=== PATIENT | male | born 1950 | race Caucasian/White ===

== ENCOUNTER 2023-04-17 07:30 | Outpatient (OUT) | payer MEDICARE, SELFPAY ==
--- NOTE | 2023-04-17 07:36 | CT_ITS ---
The [address] [address] Patient Name: AUGUSTO BOONE MRN: [id number] date: 1950 Sex: M Assigned Patient Location: CT Current Patient Location: Accession/Order Number: [id number] Exam Date: 04/17/2023 07:48 Report Date: 04/18/2023 07:35 At the request of: NADINE BETHEA Procedure: CT lung screening low-dose EXAMINATION: CT lung screening low-dose HISTORY: Cigarette Smoker F17.210 COMPARISON: CT lung cancer screening 04/01/2022 TECHNIQUE: Axial, Coronal, and Sagittal images were created without the administration of IV contrast material. Dose reduction techniques were achieved by using automated exposure control and/or adjustment of mA and/or kV according to patient size and/or use of iterative reconstruction technique. FINDINGS: LUNGS: Stable collection of small calcifications within lateral left upper lobe favoring chronic granulomas. PLEURA: No mass, effusion, or pneumothorax. VASCULATURE: No abnormality. ERIBERTO: Calcified left hilar lymph nodes compatible with chronic granulomatous disease. MEDIASTINUM: No mass or pathologic adenopathy. CARDIAC: Small pericardial effusion and moderate atherosclerotic coronary artery disease, unchanged. No cardiac enlargement. AORTA: No aneurysm or dissection. CHEST WALL: No mass or axillary adenopathy BONES: Old, healed posterior right rib fractures. LIMITED ABDOMEN: Small hiatal hernia. Limited images of the upper abdomen. OTHER: Negative. CT/CT lung screening low-dose IMPRESSION: 1. Lung-RADS 2- Benign Appearance or Behavior. Nodules with a very low likelihood of becoming a clinically active cancer due to size or lack of growth. Follow-up CT Chest in 1 year. Electronically authenticated by: SHANON HAMPTON Date: 04/18/2023 07:35
--- NOTE | 2023-04-17 07:36 | US_ITS ---
The [address] [address] Patient Name: AUGUSTO BOONE MRN: [id number] date: 1950 Sex: M Assigned Patient Location: CT Current Patient Location: CT Accession/Order Number: [id number] Exam Date: 04/17/2023 08:05 Report Date: 04/17/2023 08:31 At the request of: NADINE BETHEA Procedure: US abdominal aortic aneurysm EXAM: US abdominal aortic aneurysm HISTORY: Cigarette Smoker F17.210. ; Screening TECHNIQUE: Ultrasound was performed of the abdominal aorta. COMPARISON: None. FINDINGS: AORTA: Maximum diameter 2.7 x 2.4 cm. Mild dilation of common iliac arteries, 1.7 cm on right, 1.6 cm on left. OTHER: Normal waveform and flow. US/US abdominal aortic aneurysm IMPRESSION: 1. No aortic aneurysm. 2. 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 Electronically authenticated by: SHANON HAMPTON Date: 04/17/2023 08:31
--- NOTE | 2023-04-17 08:57 | CA_ITS ---
Patient Name: AUGUSTO BOONE MR#: [id number] : 1950 Exam Date: 04/17/2023 Ordering Doctor: DR NADINE BETHEA M.D. ECHOCARDIOGRAM REPORT PROCEDURE: CA ECHO DOPPLER COMPLETE INDICATIONS: Heart murmur, hypertension, smoker COMPARISON: None. DESCRIPTION: COMPLETE ECHOCARDIOGRAM Real-time transthoracic echocardiography with 2D, M-mode, spectral and color flow Doppler performed. QUALITY: Technical quality was good. 70 , 245#, BSA 2.28 m2 LEFT VENTRICLE: Normal chamber size. Moderate concentric left ventricular hypertrophy. Normal systolic function. LV EF: Normal left ventricular ejection fraction, (>55%). DIASTOLIC: Normal diastolic function. ATRIAL SEPTUM: Visually appears intact. LEFT ATRIUM: Normal chamber size. RIGHT ATRIUM: Normal chamber size. RIGHT VENTRICLE: Normal chamber size. Normal right ventricular systolic function. TRICUSPID VALVE: Normal mobility and thickness. No stenosis with trivial regurgitation. No evidence of pulmonary hypertension. RVSP 26 mmHg MITRAL VALVE: Normal mobility and thickness. No evidence of mitral valve stenosis. There is no mitral annular calcification. No mitral regurgitation. AORTIC VALVE: Normal trileaflet appearance. Normal leaflet mobility. No evidence of aortic valve stenosis. Multifocal calcifications. No aortic regurgitation. AORTIC ROOT: Normal diameter and appearance. PULMONIC VALVE: Normal thickness and mobility. No stenosis. No regurgitation. PERICARDIUM: No evidence of pericardial effusion. IVC: Collapses with inspirations. PLEURA: CONCLUSION: 1. Moderate concentric left ventricular hypertrophy with normal systolic function. LVEF is 55 to 60%. 2. Normal right ventricular size and systolic function. 3. No significant valvular dysfunction. 4. Normal right-sided pressures. 5. No pericardial effusion. Adult Echocardiography Procedure Report Left Ventricle LVEDD (3.7 - 5.6 cm): 4.04 cm LVESD (2.2 - 4.0 cm): 3.13 cm LVIVS thickness (0.6 - 1.2 cm): 1.55 cm LVPW thickness (0.5 - 1.0 cm): 1.28 cm LVOT Max Gradient: 3 mm[Hg] Peak Velocity (LVOT): 91.70 cm/s Mean Velocity (LVOT): 57.00 cm/s LVOT Diameter 2.60 cm Left Ventricular Ejection Fraction: 55-60 % Left Atrium LA Volume Index (2D A2C): 53346 mm3 Left Atrium Systolic Dimension: 4.10 cm Mitral Valve MV E to A Ratio: 1 Mitral Valve A-Wave Peak Velocity: 84.40 cm/s Mitral Valve E-Wave Peak Velocity: 83.90 cm/s Cardiovascular Orifice Area: 2.27 cm2 Right Ventricle Aorta AO Root Diam: 3.60 cm Aortic Valve AoV Area (Peak Terrell): 4.35 cm2 AoV Area (VTI): 3.78 cm2 Peak Velocity(Antegrade Flow): 112.00 cm/s Peak Gradient(Antegrade Flow): 5 mm[Hg] Mean Velocity(Antegrade Flow): 76.80 cm/s Mean Gradient(Antegrade Flow): 3 mm[Hg] Velocity Time Integral: 24.30 cm Tricuspid Valve Peak Velocity (Regurgitant Flow): 240.00 cm/s Peak Velocity: 53.80 cm/s Pulmonic Valve Peak Velocity: 128.00 cm/s, 111.00 cm/s Peak Gradient: 6 mm[Hg] Right Atrium Dictated by: Sami Lucia M.D. on 04/17/2023 at 19:32 Approved by: Sami Lucia M.D. on 04/17/2023 at 19:34
== END 2023-04-17 07:31 | disposition home or self-care (01) ==
LOC: CT 07:30
PROVIDERS: PCP Internal Medicine; Visit Provider Internal Medicine
DX: R01.1 Cardiac murmur, unspecified (principal); F17.210 Nicotine dependence, cigarettes, uncomplicated; Z13.6 Encounter for screening for cardiovascular disorders
CPT/HCPCS: 71271; 76775; 93306

== ENCOUNTER 2024-06-01 09:01 | Outpatient (OUT) | payer MEDICARE, SELFPAY ==
--- NOTE | 2024-06-01 09:08 | CT_ITS ---
[address] [address] Patient Name: AUGUTSO BOONE MRN: [id number] date: 1950 Sex: M Assigned Patient Location: CT Current Patient Location: Accession/Order Number: [id number] Exam Date: 06/01/2024 09:15 Report Date: 06/02/2024 05:26 At the request of: NADINE BETHEA Procedure: CT lung screening low-dose EXAMINATION: CT lung screening low-dose HISTORY: Nicotine Dependence COMPARISON: No relevant comparison available. TECHNIQUE: Axial, Coronal, and Sagittal images were created without the administration of IV contrast material. Dose reduction techniques were achieved by using automated exposure control and/or adjustment of mA and/or kV according to patient size and/or use of iterative reconstruction technique. FINDINGS: LUNGS: Stable collection of tiny calcifications within lateral left upper lobe near level of the hilum; likely sequela of chronic granulomatous disease. No significant emphysematous changes or acute infiltrates. PLEURA: No mass, effusion, or pneumothorax. VASCULATURE: No abnormality. ERIBERTO: Calcified left hilar lymph nodes suggestive chronic granulomatous disease. MEDIASTINUM: No mass or pathologic adenopathy. CARDIAC: Trace amount of pericardial fluid. No cardiac enlargement. Coronary Artery calcifications: Coronary calcifications are mild. AORTA: No aneurysm or dissection. CHEST WALL: No mass or axillary adenopathy BONES: Several old healed rib fractures bilaterally. LIMITED ABDOMEN: Moderate size hiatal hernia. Limited images of the upper abdomen. OTHER: Negative. CT/CT lung screening low-dose IMPRESSION: 1. Lung-RADS 2- Benign Appearance or Behavior. Nodules with a very low likelihood of becoming a clinically active cancer due to size or lack of growth. Follow-up CT Chest in 1 year. Electronically authenticated by: SHANON HAMPTON Date: 06/02/2024 05:26
--- OUTSIDE RECORDS SUMMARY | 2024-06-01 09:17 | XMS_ITS | CCD ---
Author Organization [facility] Inform ion Partnership [facility] Care Team Providers Care Suspect Artist Supervisor Name Role Phone Veena Noel Unavailable ANGEL MINAYA Attending Unavailable ANGEL MINAYA Admitting Unavailable DR Baron Laguerre Consulting Unavailable DR ZACH RICCI Primary Care Unavailable ANGEL MINAYA Consulting Unavailable FAUSTINO Ricci Primary Care Provider MEDINA Epstein Attending Provider Caty Epstein Admitting Unavailable Caty Epstein Attending Unavailable Zach Ricci Primary Care Unavailable Zach Ricci MD Primary Care Provider [phone] AZCH RICCI Attending Unavailable Medications Current Medications Medication Drug Class(es) Dates Sig (Normalized) Sig (Original) allopurinol 300 mg oral tablet (8 sources) Xanthine Oxidase Inhibitor Start: 11-12-2023 take 1 tablet by mouth once daily allopurinol (Zyloprim) 300 MG tablet Indications: Gout, unspecified TAKE 1 TABLET BY MOUTH EVERY DAY FOR 100 DAYS 90 tablet 5 11/12/2023 Active Start: 08-12-2023 take 300 mg by mouth once irma y Allopurinol Active 300 MG PO Daily August 12, 2023 12:00am Allopurinol Acti ve amLODIPine 10 mg oral tablet (7 sources) Dihydropyridine Calcium Channel El Start: 11-12-2023 take 1 tablet by mouth once daily amLODIPine (Norvasc) 10 MG tablet Indications: Primary hypertension (CMS/HCC) TAKE 1 TABLET BY MOUTH EVERY DAY FOR 100 DAYS 90 tablet 5 11/12/2023 Active Start: 08-12-2023 take 10 mg by mouth once daily Amlodipine Active 10 MG PO Daily August 12, 2023 12:00am amLODIPine Benzoate (1 source) amLODIPine Benzo ate Active hydroCHLOROthiazide 25 mg oral tablet (7 sources) Thiazide Diuretic Start: 2023 take 1 tablet by mouth once daily in the morning hydroCHLOROthiazide (HYDRODiuril) 25 MG tablet Indications: Essential (primary) hypertension (CMS/HCC) TAKE 1 TABLET BY MOUTH EVERY DAY IN THE MORNING FOR 90 DAYS 100 tablet 3 01/07/2024 Active Start: 08-12-2023 take 25 mg by mouth once daily Hydrochlorothiazide Active 25 MG PO Daily August 12, 2023 12:00am lidocaine 0.05 mg/mg medicated patch (1 source) Antiarrhythmic, Amide Local Anesthetic Start: 08-12-2023 apply 1 dose topically once daily Lidocaine Active 1 PATCH TOPICAL Daily 15 August 12, 2023 12:00am leave on most painful area for up to 12 hrs losartan potassium 100 mg oral tablet (8 sources) Angiotensin 2 Receptor El Start: 04-29-2023 End: 04-12-2024 take 1 tablet by mouth in the morning losartan (Cozaar) 100 MG tablet Indications: Primary hypertension (CMS/HCC) Take 1 tablet (100 mg) by mouth in the morning. 90 tablet 04/12/2024 Active Losartan Potassium-HCTZ (1 source) Losartan Potassium-HCTZ Active meloxicam 15 mg oral tablet (7 sources) Nonsteroidal Anti-inflammatory Drug Start: 09-16-2023 take 1 tablet by mouth once daily at mealtime meloxicam (Mobic) 15 MG tablet Indications: Unspecified osteoarthritis, unspecified site Take 1 tablet (15 mg) by mouth Daily Take with food 100 tablet 3 09/16/2023 Active Start: 08-12-2023 take 15 mg by mouth once daily Meloxicam Active 15 MG PO Daily August 12, 2023 12:00am omeprazole 40 mg delayed release oral capsule (9 sources) Proton Pump Inhibitor Start: 04-22-2023 End: 04-12-2024 take 1 capsule by mouth in the morning omeprazole (PriLOSEC) [address] capsule Indications: Gastro-esophageal reflux disease without esophagitis Take 1 capsule (40 mg) by mouth in the morning. 90 capsule 04/12/2024 Active Omeprazole Activ e sildenafil 100 mg oral tablet (3 sources) Phosphodiesterase 5 Inhibitor Start: 04-30-2023 take 1 tablet by mouth once daily as needed sildenafil (Viagra) 100 MG tablet Indications: Erectile dysfunction, unspecified erectile dysfunction type Take 1 tablet (100 mg) by mouth Daily as needed for erectile dysfunction 04/30/2023 Active Problems Active Problems Problem Classification Problem Date Documented Date Episodic/Chronic Administrative/socia l admission (2 sources) Patient encounter status; Translations: [Other specified counseling] 05-12-2024 Episodic Diverticulosis and diverticulitis (5 sources) Diverticulosis of large intestine; Translations: [Diverticulosis of large intestine without perforation or abscess without bleeding] Onset: 11-05-2022 11-05-2022 Chronic Esophageal disorders (8 sources) Gastroesophageal reflux disease without esophagitis; Translations: [Gastro-esophageal reflux disease without esophagitis] Onset: 11-05-2022 04-10-2024 Chronic Essential hypertension (8 sources) Essential hypertension; Translations: [Essential (primary) hypertension] Onset: 11-05-2022 11-05-2022 Chronic Gout and other crystal arthropathies (7 sources) Gout; Translations: [Gout, unspecified] Onset: 11-05-2022 11-05-2022 Chronic Hyperplasia of prostate (5 sources) Prostate nodule; Translations: [Nodular prostate without lower urinary tract symptoms] Onset: 11-05-2022 11-05-2022 Chronic Osteoarthritis (5 sources) Chronic osteoarthritis; Translations: [Unspecified osteoarthritis, unspecified site] Onset: 11-05-2022 11-05-2022 Chronic Other fractures (2 sources) Fracture of left rib; Translations: [Fracture of one rib, left side, initial encounter for closed fracture] 08-12-2023 Episodic Other fractures (2 sources) Fracture of one rib, left side, initial encounter for closed fracture; Translations: [Closed fracture of rib(s), unspecified] 08-12-2023 Episodic Other male genital disorders (5 sources) Male erectile dysfunction, unspecified; Translations: [Impotence of organic origin] Onset: 04-30-2023 04-30-2023 Chronic Other nutritional; endocrine; and metabolic disorders (2 sources) Obesity caused by energy imbalance; Translations: [Morbid (severe) obesity due to excess calories] 05-12-2024 Chronic Other nutritional; endocrine; and metabolic disorders (2 sources) Body mass index 30+ - obesity; Translations: [Body mass index (BMI) 36.0-36.9, adult] 05-12-2024 Chronic Other screening for suspected conditions (not mental disorders or infectious disease) (3 sources) Encounter for screening for malignant neoplasm of respiratory organs; Translations: [Patient encounter status] Onset: 04-06-2022 05-12-2024 Episodic Spondylosis; intervertebral disc disorders; other back problems (5 sources) Thoracic back pain; Translations: [Dorsalgia, unspecified] Onset: 08-12-2023 08-12-2023 Episodic Substance-related disorders (13 sources) Nicotine dependence, cigarettes, uncomplicated; Translations: [Cigarette smoker ] Onset: 04-01-2022 Chronic Past or Other Problems Problem Classification Problem Date Documented Da te Episodic/Chronic Immunizations and screening for infectious disease (1 source) Contact with and (suspected) exposure to other viral communicable diseases Onset: 03-29-2021 Resolved: 03-29-2021 Episodic Results Test Name Value Interpretation Reference Range Facility CBC (INCLUDES DIFF/PLT)on Basophils (Bld) [#/Vol] 0.074 10*3/uL Normal 0-200 [facility] Comment on above: Performed By: #### 6 399, 90675, 905 #### [facility] [address] [place] [address] Washing Machine Mechanic: Indira Peraza #### 7600 #### [facility] [address], [address] [place] [address] Washing Machine Mechanic: Karl Santana MD Basophils/100 WBC (Bld) 0.9 % Normal [facility] Comment on above: Performed By: #### 6 399, 19566, 905 #### [facility] [address] [place] [address] Washing Machine Mechanic: Indira Peraza #### 7600 #### [facility] [address], [address] [place] [address] Washing Machine Mechanic: Karl Santana MD Eosinophils (Bld) [#/Vol] 0.361 10*3/uL Normal 15-500 [facility] Comment on above: Performed By: #### 6 399, 52611, 905 #### [facility] [address] [place] [address] Washing Machine Mechanic: Indira Peraza #### 7600 #### [facility] [address] , [address] [place] [address] Washing Machine Mechanic: Karl Santana MD Eosinophils/100 WBC (Bld) 4.4 % Normal [facility] Comment on above: Performed By: #### 6 399, 33502, 905 #### [facility] [address] [place] [address] Washing Machine Mechanic: Indira Peraza #### 7600 #### [facility] [address] , [address] [place] [address] Washing Machine Mechanic: Karl Santana MD Erythrocyte distribution width (RBC) [Ratio] 13.4 % Normal 11.0-15.0 [facility] Comment on above: Performed By: #### 6 399, 40728, 905 #### [facility] [address] [place] [address] Washing Machine Mechanic: Indira Peraza #### 7600 #### [facility] [place] [address] [address] , [address] [place] [address] Washing Machine Mechanic: Karl Santana MD Hematocrit (Bld) [Volume fraction] 43.4 % Normal 38.5-50.0 [facility] Comment on above: Performed By: #### 6 399, 62958, 905 #### [facility] [address] [place] [address] Washing Machine Mechanic: Indira Peraza #### 7600 #### [facility] [address] , [address] [place] [address] Washing Machine Mechanic: Karl Santana MD Hemoglobin (Bld) [Mass/Vol] 14.6 g/dL Normal 13.2-17.1 [facility] Comment on above: Performed By: #### 6 399, 38279, 905 #### [facility] [address] [place] [address] Washing Machine Mechanic: Indira Peraza #### 7600 #### [facility] [address], [address] [place] [address] Washing Machine Mechanic: Karl Santana MD Lymphocytes (Bld) [#/Vol] 1.648 10*3/uL Normal 850-3900 [facility] Comment on above: Performed By: #### 6 399, 38592, 905 #### [facility] [address] [place], [place] [id number] Washing Machine Mechanic: Indira Peraza #### 7600 #### [facility] [address], [address] [place] [address] Washing Machine Mechanic: Karl Santana MD Lymphocytes/100 WBC (Bld) 20.1 % Normal [facility] Comment on above: Performed By: #### 6 399, 71949, 905 #### [facility] [address] Washing Machine Mechanic: Indira Peraza #### 7600 #### [facility] [address], [address] [place] [address] Washing Machine Mechanic: Karl Santana MD MCH (RBC) [Entitic mass] 30.6 pg Normal 27.0-33.0 [facility] Comment on above: Performed By: #### 6 399, 41136, 905 #### [facility] [address] [place], [place] [id number] Washing Machine Mechanic: Indira Peraza #### 7600 #### [facility] [address], [address] [place] [address] Washing Machine Mechanic: Karl Santana MD MCHC (RBC) [Mass/Vol] 33.6 g/dL Normal 32.0-36.0 [facility] Comment on above: Result Comment: For adults, a slight decrease in the calculated MCHC value (in the range of 30 to 32 g/dL) is most likely not clinically significant; however, it should be interpreted with caution in correlation with other red cell parameters and the patient's clinical condition. Performed By: #### 6 399, 80132, 905 #### [facility] [address] [place] [address] Washing Machine Mechanic: Indira Peraza #### 7600 #### [facility] [place] [address] Washing Machine Mechanic: Karl Santana MD MCV (RBC) [Entitic vol] 91.0 fL Normal 80.0-100.0 [facility] Comment on above: Performed By: #### 6 399, 93453, 905 #### [facility] [address] [place], [place] [id number] Washing Machine Mechanic: Indira Peraza #### 7600 #### [facility] [place] [address] Washing Machine Mechanic: Karl Santana MD Monocytes (Bld) [#/Vol] 0.746 10*3/uL Normal 200-950 [facility] Comment on above: Performed By: #### 6 399, 91509, 905 #### [facility] [address] [place] [address] Washing Machine Mechanic: Indira Peraza #### 7600 #### [facility] [place] [address] Washing Machine Mechanic: Karl Santana MD Monocytes/100 WBC (Bld) 9.1 % Normal [facility] Comment on above: Performed By: #### 6 399, 52358, 905 #### [facility] [address] [place] [address] Washing Machine Mechanic: Indira Peraza #### 7600 #### [facility] [place] [address] Washing Machine Mechanic: Karl Santana MD Neutrophils (Bld) [#/Vol] 5.371 10*3/uL Normal 7532-8245 [facility] Comment on above: Performed By: #### 6 399, 54035, 905 #### [facility] [address] [place], [place] [address] Washing Machine Mechanic: Indira Peraza #### 7600 #### [facility] [address] , [address] [place] [address] Washing Machine Mechanic: Karl Santana MD Neutrophils/100 WBC (Bld) 65.5 % Normal [facility] Comment on above: Performed By: #### 6 399, 26215, 905 #### [facility] [address] [place], [place] [id number] Washing Machine Mechanic: Indira Peraza #### 7600 #### [facility] [address] , [address] Washing Machine Mechanic: Karl Santana MD Platelet mean volume (Bld) [Entitic vol] 10.6 fL Normal 7.5-12.5 [facility] Comment on above: Performed By: #### 6 399, 99675, 905 #### [facility] [address] [place], [place] [id number] Washing Machine Mechanic: Indira Peraza #### 7600 #### [facility] [address] , [address] [place] [address] Washing Machine Mechanic: Karl Santana MD Platelets (Bld) [#/Vol] 273 10*3/uL Normal 140-400 [facility] Comment on above: Performed By: #### 6 399, 28420, 905 #### [facility] [address] [place] [address] Washing Machine Mechanic: Indira Peraza #### 7600 #### [facility] [address] , [address] Washing Machine Mechanic: Karl Santana MD RBC (Bld) [#/Vol] 4.77 10*6/uL Normal 4.20-5.80 [facility] Comment on above: Performed By: #### 6 399, 94110, 905 #### [facility] [address] [place] [address] Washing Machine Mechanic: Indira Peraza #### 7600 #### [facility] [address], [address] [place] [address] Washing Machine Mechanic: Karl Santana MD WBC (Bld) [#/Vol] 8.2 10*3/uL Normal 3.8-10.8 [facility] Comment on above: Performed By: #### 6 399, 70385, 905 #### [facility] Washing Machine Mechanic: Indira Peraza #### 7600 #### [facility] [address], [address] [place] [address] Washing Machine Mechanic: Karl Santana MD [facility] [place] 05-13-2024 Albumin [Mass/Vol] 4.5 g/dL Normal 3.6-5.1 [facility] Comment on above: Performed By: #### 6 399, 44774, 905 #### [facility] Washing Machine Mechanic: Indira Peraza #### 7600 #### [facility] [address], [address] [place] [address] Washing Machine Mechanic: Karl Santana MD Albumin/Globulin [Mass ratio] 1.4 {ratio} Normal 1.0-2.5 [facility] Comment on above: Performed By: #### 6 399, 48936, 905 #### [facility] Washing Machine Mechanic: Indira Peraza #### 7600 #### [facility] [address], [address] [place] [address] Washing Machine Mechanic: Karl Santana MD ALP [Catalytic activity/Vol] 77 U/L Normal 35-144 [facility] Comment on above: Performed By: #### 6 399, 89362, 905 #### [facility] [address] [place] [address] Washing Machine Mechanic: Indira Peraza #### 7600 #### [facility] [address] , [address] [place] [address] Washing Machine Mechanic: Karl Santana MD ALT [Catalytic activity/Vol] 33 U/L Normal 9-46 [facility] Comment on above: Performed By: #### 6 399, 81239, 905 #### [facility] [address] [place], [place] [address] Washing Machine Mechanic: Indira Peraza #### 7600 #### [facility] [place] [address] [address] , [address] [place] [address] Washing Machine Mechanic: Karl Santana MD AST [Catalytic activity/Vol] 50 U/L High 10-35 [facility] Comment on above: Performed By: #### 6 399, 02388, 905 #### [facility] [address] Washing Machine Mechanic: Indira Peraza #### 7600 #### [facility] [address], [address] [place] [address] Washing Machine Mechanic: Karl Santana MD Bilirubin [Mass/Vol] 0.9 mg/dL Normal 0.2-1.2 [facility] Comment on above: Performed By: #### 6 399, 19102, 905 #### [facility] [address] Washing Machine Mechanic: Indira Peraza #### 7600 #### [facility] [address], [address] [place] [address] Washing Machine Mechanic: Karl Santana MD BUN/CREATININE RATIO SEE NOTE: Normal 6-22 [facility] Comment on above: Result Comment: Not Reported: BUN and Creatinine are within reference range. Performed By: #### 6 399, 13065, 905 #### [facility] [address] [place] [address] Washing Machine Mechanic: Indira Peraza #### 7600 #### [facility] [address], [address] [place] [address] Washing Machine Mechanic: Karl Santana MD Calcium [Mass/Vol] 9.5 mg/dL Normal 8.6-10.3 [facility] Comment on above: Performed By: #### 6 399, 04993, 905 #### [facility] [address] [place] [address] Washing Machine Mechanic: Indira Peraza #### 7600 #### [facility] [address], [address] [place] [address] Washing Machine Mechanic: Karl Santana MD Chloride [Moles/Vol] 99 mmol/L Normal 98-110 [facility] Comment on above: Performed By: #### 6 399, 59474, 905 #### [facility] [address] [place] [address] Washing Machine Mechanic: Indira Peraza #### 7600 #### [facility] [address], [address] [place] [address] Washing Machine Mechanic: Karl Santana MD CO2 [Moles/Vol] 29 mmol/L Normal 20-32 [facility] Comment on above: Performed By: #### 6 399, 02570, 905 #### [facility] [address] Washing Machine Mechanic: Indira Peraza #### 7600 #### [facility] [address], [address] [place] [address] Washing Machine Mechanic: Karl Santana MD Creatinine [Mass/Vol] 0.75 mg/dL Normal 0.70-1.28 [facility] Comment on above: Performed By: #### 6 399, 37974, 905 #### [facility] [address] [place] [address] Washing Machine Mechanic: Indira Peraza #### 7600 #### [facility] [address], [address] [place] [address] Washing Machine Mechanic: Karl Santana MD GFR/1.73 sq M.predicted among non-blacks MDRD (S/P/Bld) [Vol rate/Area] 96 mL/min/{1.73_m2} Normal > OR = 60 [facility] Comment on above: Performed By: #### 6 399, 27003, 905 #### [facility] [address] [place], [place] [id number] Washing Machine Mechanic: Indira Peraza #### 7600 #### [facility] [address], [address] [place] [address] Washing Machine Mechanic: Karl Santana MD Globulin (S) [Mass/Vol] 3.2 g/dL Normal 1.9-3.7 [facility] Comment on above: Performed By: #### 6 399, 97192, 905 #### [facility] [address] [place] [address] Washing Machine Mechanic: Indira Peraza #### 7600 #### [facility] [address], [address] [place] [address] Washing Machine Mechanic: Karl Santana MD Glucose [Mass/Vol] 111 mg/dL High 65-99 [facility] Comment on above: Result Comment: Fasting reference interval For someone without known diabetes, a glucose value between 100 and 125 mg/dL is consistent with prediabetes and should be confirmed with a follow-up test. Performed By: #### 6 399, 57016, 905 #### [facility] Washing Machine Mechanic: Indira Peraza #### 7600 #### [facility] [address], [address] [place] [address] Washing Machine Mechanic: Karl Santana MD Potassium [Moles/Vol] 4.4 mmol/L Normal 3.5-5.3 [facility] Comment on above: Performed By: #### 6 399, 83541, 905 #### [facility] Washing Machine Mechanic: Indira Peraza #### 7600 #### [facility] [address], [address] [place] [address] Washing Machine Mechanic: Karl Santana MD Protein [Mass/Vol] 7.7 g/dL Normal 6.1-8.1 [facility] Comment on above: Performed By: #### 6 399, 63643, 905 #### [facility] [address] [place] [address] Washing Machine Mechanic: Indira Peraza #### 7600 #### [facility] [address], [address] [place] [address] Washing Machine Mechanic: Karl Santana MD Sodium [Moles/Vol] 137 mmol/L Normal 135-146 [facility] Comment on above: Performed By: #### 6 399, 48993, 905 #### [facility] [address] Washing Machine Mechanic: Indira Peraza #### 7600 #### [facility] [address], [address] [place] [address] Washing Machine Mechanic: Karl Santana MD Urea nitrogen [Mass/Vol] 15 mg/dL Normal 7-25 [facility] Comment on above: Performed By: #### 6 399, 98699, 905 #### [facility] [address] Washing Machine Mechanic: Indira Peraza #### 7600 #### [facility] [address], [address] [place] [address] Washing Machine Mechanic: Karl Santana MD LIPID PANEL, [facility] 04-22 Cholesterol [Mass/Vol] 148 mg/dL Normal <200 [facility] Comment on above: Order Comment: FASTI NG:YES FASTING: YES Performed By: #### 6 399, 59236, 905 #### [facility] [address] [place] [address] Washing Machine Mechanic: Indira Peraza #### 7600 #### [facility] [address], [address] [place] [address] Washing Machine Mechanic: Karl Santana MD Cholesterol in HDL [Mass/Vol] 37 mg/dL Low > OR = 40 [facility] Comment on above: Order Comment: FASTI NG:YES FASTING: YES Performed By: #### 6 399, 92372, 905 #### [facility] [address] [place] [address] Washing Machine Mechanic: Indira Peraza #### 7600 #### [facility] [place] [id number] [facility], [address] [place] [address] Washing Machine Mechanic: Karl Santana MD Cholesterol in LDL [Mass/Vol] 87 mg/dL Normal [facility] Comment on above: Order Comment: FASTI NG:YES FASTING: YES Result Comment: Refe rence range: <100 Desirable range <100 mg/dL for primary prevention; <70 mg/dL for patients with CHD or diabetic patients with > or = 2 CHD risk factors. LDL-C is now calculated using the Abhi calculation, which is a validated novel method providing better accuracy than the Friedewald equation in the estimation of LDL-C. Kenny PATTERSON et al. DEMAR. 2013;310(19): 6390-9781 (http://education.Research Journalist.Kochzauber/faq/UDD553) Performed By: #### 6 399, 41396, 905 #### [facility] [address] [place] [address] Washing Machine Mechanic: Indira Peraza #### 7600 #### [email or web address] [address], [address] [place] [address] Washing Machine Mechanic: Karl Santana MD Cholesterol.total/C holesterol in HDL [Mass ratio] 4.0 {ratio} Normal <5.0 [facility] Comment on above: Order Comment: FASTI NG:YES FASTING: YES Performed By: #### 6 399, 75443, 905 #### [facility] [place] [address] Washing Machine Mechanic: Indira Peraza #### 7600 #### [facility] [place] [id number] [facility], [address] [place] [address] Washing Machine Mechanic: Karl Santana MD NON HDL CHOLESTEROL 111 mg/dL (calc) Normal <130 [facility] Comment on above: Order Comment: FASTI NG:YES FASTING: YES Result Comment: For patients with diabetes plus 1 major ASCVD risk factor, treating to a non-HDL-C goal of <100 mg/dL (LDL-C of <70 mg/dL) is considered a therapeutic option. Performed By: #### 6 399, 51383, 905 #### [facility] – [facility] [address] [place], [place] [id number] Washing Machine Mechanic: Indira Peraza #### [id number] #### [facility] [address], [address] [place] [address] Washing Machine Mechanic: Karl Santana MD Triglyceride [Mass/Vol] 143 mg/dL Normal <150 [facility] Comment on above: Order Comment: FASTI NG:YES FASTING: YES Performed By: #### 6 [id number], [id number], 905 #### [facility] [address] [place] [address] Washing Machine Mechanic: Indira Peraza #### 7600 #### [facility] [address], [address] [place] [address] Washing Machine Mechanic: Karl Santana MD PSA, TOTALon 05-13-2024 PSA, TOTAL 1.57 ng/mL Normal < OR = 4.00 [facility] Comment on above: Result Comment: The total PSA value from this assay system is standardized against the WHO standard. The test result will be approximately 20% lower when compared to the equimolar-standardized total PSA ([facility] [place]). Comparison of serial PSA results should be interpreted with this fact in mind. This test was performed using the Siemens chemiluminescent method. Values obtained from different assay methods cannot be used interchangeably. PSA levels, regardless of value, should not be interpreted as absolute evidence of the presence or absence of disease. Performed By: #### 6 [phone], [id number], 905 #### [facility] [address] [place] [id number] Washing Machine Mechanic: Indira Peraza #### 7600 #### [facility] [address], [address] [place] [address] Washing Machine Mechanic: Karl Santana MD URIC ACIDon 05-13-2024 Urate [Mass/Vol] 4.8 mg/dL Normal 4.0-8.0 [facility] Comment on above: Result Comment: Ther apeutic target for gout patients: <6.0 mg/dL Performed By: #### 6 399, [id number], 905 #### [facility] [address] [place] [address] Washing Machine Mechanic: Indira Peraza #### 7600 #### [facility] [address], [address] [place] [phone] Washing Machine Mechanic: Karl Santana MD XR ribs LT min 3V w CXR1V*on 08-12-2023 XR ribs LT min 3V w CXR1V* [facility] [place] [address] [place] [address] XRay Report Signed Patient: Augusto Reyna MR#: [id number] : 1950 Acct:[id number] Age/Sex: 73 / M ADM Date: 08/12/23 Loc: [facility] Room: Type: [facility] Attending Dr: Caty Epstein APRN Copies to: Caty Epstein APRN Ordering Provider: Caty Epstein APRN Date of Service: 08/12/23 XR/XR ribs LT min 3V w CXR1V*: fall, back pain XR ribs LT min 3V w CXR1V* 08/12/2023 10:46 AM SIGNS AND SYMPTOMS: Fall, left posterior rib pain PROTOCOL: Radiograph of the chest with oblique radiographs of the left ribs COMPARISON: None FINDINGS: The trachea is midline. Atherosclerotic changes are noted in the thoracic aorta. The heart and mediastinal structures are within normal limits. The lung parenchyma is clear. There is a minimally displaced posterior lateral left sixth rib fracture. XR/XR ribs LT min 3V w CXR1V* IMPRESSION: There is a minimally displaced posterior lateral left sixth rib fracture. No pneumothorax. Impression dictated by: Freedom Akins M.D.08/12/2023 11:22 AM Dictation Location: [place] [address] Transcribed By: [facility] 08/12/23 1122 Dictated By: Freedom Akins II, MD 08/12/23 1117 Signed By: 08/12/23 1122 Normal [facility] CT LUNG CANCER SCREENINGon 1 06-03-2021 CT LUNG CANCER SCREENING EXAMINATION: CT LUNG CANCER SCREENING HISTORY: Screening for malignant neoplasm of respiratory tract COMPARISON: No relevant comparison available. TECHNIQUE: Axial, Coronal, and Sagittal images were created without the administration of IV contrast material. Dose reduction techniques were achieved by using automated exposure control and/or adjustment of mA and/or kV according to patient size and/or use of iterative reconstruction technique. FINDINGS: LUNGS: Several tiny calcifications within left upper lobe with trace amount of adjacent stranding, likely granulomatous reaction. PLEURA: No mass, effusion, or pneumothorax. VASCULATURE: No abnormality. ERIBERTO: Calcified left hilar lymph nodes. MEDIASTINUM: No mass or pathologic adenopathy. CARDIAC: Trace amount of pericardial fluid. AORTA: No aneurysm or dissection. CHEST WALL: No mass or axillary adenopathy BONES: Old, healed posterior lower right rib fractures. Mild anterior wedging of L1 and increased sclerosis of the lower half of vertebral body; compression fracture versus degenerative endplate changes. LIMITED ABDOMEN: No suspicious findings. Limited images of the upper abdomen. OTHER: Negative. IMPRESSION: 1. Lung-RADS 2- Benign Appearance or Behavior. Nodules with a very low likelihood of becoming a clinically active cancer due to size or lack of growth. Follow-up CT Chest in 1 year. 2. L1 mild anterior wedging; degenerative endplate changes versus mild compression fracture. No comparison studies. Electronically authenticated by: BARON LAGUERRE Date: 2022-04-02 09:59 Normal [facility] COVID Quick Testingon 2020 Result Negative NI Other Quick Fluon 03-29-2021 FLUAV Ab CF (S) [Titer] Negative NI Other FLUBV Ab CF (S) [Titer] Negative NI Other Vital Signs Date Time Vital Sign Value Performing Clinician Facility 05-12-2024 08:33-0500 Body height 177.8 cm Zach Ricci MD Work Phone: [facility] 05-12-2024 08:33-0500 Body mass index (BMI) [Ratio] 36.59 kg/m2 Zach Ricci MD Work Phone: [facility] 05-12-2024 08:33-0500 Body weight 115.67 kg Zach Ricci MD Work Phone: [facility] 05-12-2024 08:33-0500 Diastolic blood pressure 74 mm[Hg] Zach Ricci MD Work Phone: [facility] 05-12-2024 08:33-0500 Heart rate 89 /min Zach Ricci MD Work Phone: [facility] 05-12-2024 08:33-0500 SaO2% (BldA) [Mass fraction] 99 % Zach Ricci MD Work Phone: [facility] 05-12-2024 08:33-0500 Systolic blood pressure 128 mm[Hg] Zach Ricci MD Work Phone: [facility] 08-12-2023 10:23-0400 Body height 177.8 cm II Zach Ricci Work Phone: [facility] 08-12-2023 10:23-0400 Body mass index (BMI) [Ratio] 36 kg/m2 II Zach Ricci Work Phone: [facility] 08-12-2023 10:23-0400 Body temperature 98.3 [degF] II Zach Ricci Work Phone: [facility] 08-12-2023 10:23-0400 Body weight 113.9 kg II Zach Ricci Work Phone: [facility] 08-12-2023 10:23-0400 Heart rate 93 /min II Zach Ricci Work Phone: [facility] 08-12-2023 10:23-0400 Respiratory rate 18 /min II Zach Ricci Work Phone: [facility] 08-12-2023 10:23-0400 SaO2% (BldA) [Mass fraction] 98 % FAUSTINO Ricci Work Phone: [facility] 03-29-2021 12:00-0500 Body height 177.8 cm Veena Ginty Other [facility] Other 03-29-2021 12:00-0500 Body mass index (BMI) [Ratio] 33.43 kg/m2 Veena Ginty Other [facility] Other 03-29-2021 12:00-0500 Body temperature 97.9 [degF] Veena Ginty Other [facility] Other 03-29-2021 12:00-0500 Body weight 105.69 kg Veena Ginty Other [facility] Other 03-29-2021 12:00-0500 Respiratory rate 18 /min Veena Ginty Other [facility] Other 03-29-2021 12:00-0500 SaO2% (BldA) [Mass fraction] 96 % Veena Ginty Other [facility] Other Encounters Encounter Date Encounter Type Care Provider Facility Start: 05-12-2024 End: 05-12-2024 Bamboo flowsheet Zach Ricci MD Work Phone: [facility] Start: 05-12-2024 End: 05-12-2024 [employer] Devicesheet Zach Ricci MD Work Phone: [facility] Start: 05-12-2024 End: 05-12-2024 Assay of hemosiderin, quant Zach Ricci MD Work Phone: [facility] Start: 05-12-2024 End: 05-12-2024 Patient encounter procedure Zach Ricci MD Work Phone: [facility] Comment on above: Routine general medi vipin examination at health care facility (Primary Dx); ACP (advance care planning); Primary hypertension (CMS/HCC); Gastroesophageal reflux disease without esophagitis; Idiopathic chronic gout without tophus, unspecified site; Cigarette smoker; Prostate cancer screening; Morbid (severe) obesity due to excess calories (CMS/HCC); Body mass index (BMI) 36.0-36.9, adult Start: 05-12-2024 End: 05-12-2024 ambulatory ZACH RICCI Not Available Start: 04-10-2024 End: 04-12-2024 Refill Zach Ricci MD Work Phone: [facility] Comment on above: Gastro-esophageal re flux disease without esophagitis Primary hypertension (CMS/HCC) Start: 08-12-2023 End: 08-12-2023 ambulatory Caty Epstein Facility:[facility] Start: 08-12-2023 End: 08-12-2023 ambulatory II Zach Ricci Work Phone: [facility] Work Phone: Start: 08-12-2023 End: 08-12-2023 Patient encounter procedure II Zach Ricci Work Phone: [facility] [place] Work Phone: Start: 04-01-2022 End: 04-02-2022 ambulatory ANGEL MINAYA Facility: Start: 03-29-2021 End: 03-29-2021 ambulatory Veena Ginty Other [facility] Other Start: 03-29-2021 Office outpatient vi sit 15 minutes Veena Ginty [facility] [place] Procedures Date Procedure Procedure Detail Performing Clinician Start: 08-12-2023 Plain chest X-ray II Da charles Ricci Work Phone: Start: 06-19-2022 Colonoscopy Zach brown MD Work Phone: Plan of Treatment Date Care Activity Detail Author Start: 06-19-2032 Screening for malign ant neoplasm of colon [facility] Start: 05-12-2025 Medicare Annual Well ness (AWV) Medicare Annual Wellness (AWV) [facility] Start: 11-10-2024 End: 11-10-2024 Patient encounter procedure 11/10/2024 8:30 AM EDT Office Visit [facility] [address] [facility] [address] [place] [id number] Zach Ricci MD [address] [facility] [place] [address] [place] [address] [facility] Start: 05-12-2024 End: 05-12-2025 Comprehensive metabolic 2000 panel - Serum or Plasma Comprehensive metabolic panel Lab Routine Primary hypertension (CMS/HCC) Expected: 05/12/2024 (Approximate), Expires: 05/12/2025 [facility] Comment on above: Expected: 05/12/2024 (Approximate), Expires: 05/12/2025 Start: 05-12-2024 End: 05-12-2025 CT Chest for screening WO contrast CT lung screening low dose Imaging Routine Cigarette smoker Expected: 05/12/2024 (Approximate), Expires: 05/12/2025 [facility] Comment on above: Expected: 05/12/2024 (Approximate), Expires: 05/12/2025 Start: 05-12-2024 End: 05-12-2025 Lipid 1996 panel - Serum or Plasma Lipid panel Lab Routine Primary hypertension (CMS/HCC) Expected: 05/12/2024 (Approximate), Expires: 05/12/2025 [facility] Comment on above: Expected: 05/12/2024 (Approximate), Expires: 05/12/2025 Start: 05-12-2024 End: 05-12-2025 Urate [Mass/volume] in Serum or Plasma Uric acid Lab Routine Idiopathic chronic gout without tophus, unspecified site Expected: 05/12/2024 (Approximate), Expires: 05/12/2025 [facility] Comment on above: Expected: 05/12/2024 (Approximate), Expires: 05/12/2025 Start: 05-12-2024 End: 05-12-2024 Patient encounter procedure [facility] Comment on above: Arrived Start: 04-02-2024 Medicare Annual Well ness (AWV) Medicare Annual Wellness (AWV) [facility] Start: 1950 Screening for malign ant neoplasm of colon [facility] CBC W Auto Different ial panel - Blood CBC and differential Lab Routine Primary hypertension (CMS/HCC) Ordered: 05/12/2024 [facility] Work Phone: Comment on above: Ordered: 05/12/2024 Prostate specific Ag [Mass/volume] in Serum or Plasma PSA Lab Routine Prostate cancer screening Ordered: 05/12/2024 [facility] Comment on above: Ordered: 05/12/2024 Immunizations Immunization Date Immunization Notes Care Provider [facility] 03-11-2024 influenza, high dose seasonal, preservative-free Zach Ricci MD Work Phone: [facility] 04-05-2023 RSV, recombinant, pr otein subunit RSVpreF, adjuvant reconstitu, 120mcg/0.5mL, PF (Arexvy) Zach Ricci MD Work Phone: [facility] 02-17-2023 Influenza, Seasonal, Quadrivalent, Adjuvanted Zach Ricci MD Work Phone: [facility] 03-28-2022 tetanus toxoid, redu lea diphtheria toxoid, and acellular pertussis vaccine, adsorbed Zach Ricci MD Work Phone: [facility] 01-31-2022 Influenza, High-dose Seasonal, Quadrivalent, Preservative Free Zach Ricci MD Work Phone: [facility] 01-31-2022 Pneumococcal Conjuga te PCV 20 Zach Ricci MD Work Phone: [facility] 03-14-2020 zoster vaccine recombinant Zach Ricci MD Work Phone: [facility] 12-30-2019 Influenza, High-dose Seasonal, Quadrivalent, Preservative Free Zach Ricci MD Work Phone: [facility] Payers Date Payer Category Payer Self-pay 2019 Medicare (Managed Care) [employer]SE [employer] [id number] 1957 Medicare [id number] 1950 Unknown [id number] 1950 Unknown [id number] Medicare Medicare [id number] Unknown [id number] Social History Date Type Detail Facility Start: 04-30-2023 End: 05-12-2024 Sex Assigned At [facility] [employer] Other Start: 1950 Sex Assigned At Male F [facility] Start: 04-02-2023 End: 05-12-2024 Tobacco smoking status [facility] Smokes tobacco daily [facility] History of tobacco use Cigarette Smoker [facility] Start: 04-02-2023 End: 05-12-2024 Cigarettes smoked current (pack per day) - Reported 0.5 [facility] Start: 04-02-2023 End: 05-12-2024 Tobacco use and exposure Smokeless tobacco non-user [facility] Start: 04-30-2023 End: 05-12-2024 Alcoholic beverage intake Current drinker of alcohol (finding) [facility] Start: 1950 Sex assigned at Not on file [facility] Clinical Notes 03-29-2021 to 05-12-2024 Zach Ricci MD - 05/12/2024 8:30 AM ESTTelephone Encounter - CASSIE Bhandari - 04/12/2024 10:05 AM ESTTelephone Encounter - CASSIE Bhandari - 04/12/2024 10:05 AM EST Note Date & Type Note Facility 05-12-2024 History of Presen t illness Narrative Images from the original note were not included. Subjective : Chief Complaint: Augusto Reyna is an 74 y.o. male here for an annual wellness visit. I have reviewed and reconciled the history and medication list with the patient today. Current Outpatient Medications Medication Sig Dispense Refill allopurinol (Zyloprim) 300 MG tablet TAKE 1 TABLET BY MOUTH EVERY DAY FOR 100 DAYS 90 tablet 5 amLODIPine (Norvasc) 10 MG tablet TAKE 1 TABLET BY MOUTH EVERY DAY FOR 100 DAYS 90 tablet 5 hydroCHLOROthiazide (HYDRODiuril) 25 MG tablet TAKE 1 TABLET BY MOUTH EVERY DAY IN THE MORNING FOR 90 DAYS 100 tablet 3 losartan (Cozaar) 100 MG tablet Take 1 tablet (100 mg) by mouth in the morning. 90 tablet 0 meloxicam (Mobic) 15 MG tablet Take 1 tablet (15 mg) by mouth Daily Take with food 100 tablet 3 omeprazole (PriLOSEC) [address] capsule Take 1 capsule (40 mg) by mouth in the morning. 90 capsule 0 sildenafil (Viagra) 100 MG tablet Take 1 tablet (100 mg) by mouth Daily as needed for erectile dysfunction No current facility-administered medications for this visit. Review of Systems List of current healthcare providers: Patient Care Team: Zach Ricci MD as PCP - General (Internal Medicine) Medicare Annual Visit Over the past 2 weeks, how often have you been bothered by any of the following problems? Little interest or pleasure in doing things: Not at all Feeling down, depressed, or hopeless: Not at all Patient Health Questionnaire-2 Score: 0 Goyal Fall Risk History of Falling, Immediate or Within 3 Months: No Secondary Diagnosis: No Ambulatory Aid: Walks without aid/bedrest/nurse assist Health Risk Assessment Form Do you need help eating, bathing, using the toilet, dressing, or getting around your home?: No Can you prepare your own meals?: Yes Can you do your own housework without help?: Yes Can you shop for groceries or clothes without help?: Yes Do you exercise for about 20 minutes 3 or more days a week?: Yes How confident are you that you can control and manage most of your health problems?: Very confident Can you mange your money, credit cards and accounts, pay bills and taxes?: Yes Cognitive Screening Three Word Registration: Apple, Watch, Yas Clock Drawing: Normal Clock - 2 Three Word Recall: All 3 words correct - 3 Total Score (0-5 Points): 5 Pain Assessment Pain Score: 6 Advance Care Planning Do you have a living will?: No Do you have a medical power of assistant district attorney?: No Objective : BP 128/74 Pulse 89 Ht 5' 10 Wt 255 lb SpO2 99% BMI 36.59 kg/m No results found. Physical Exam Assessment/Plan : The following health maintenance schedule was reviewed with the patient and provided in printed form in the after visit summary: Health Maintenance Topic Date Due Medicare Annual Wellness (AWV) 04/02/2024 Colorectal Cancer Screening 06/19/2032 Influenza Vaccine Completed Pneumococcal Vaccine: 65+ Years Completed Advance Care Planning Assessment/Plan Diagnoses and all orders for this visit: Routine general medical examination at health care facility ACP (advance care planning) Primary hypertension (CMS/HCC) - CBC and differential - Comprehensive metabolic panel; Future - Lipid panel; Future Gastroesophageal reflux disease without esophagitis Idiopathic chronic gout without tophus, unspecified site - Uric acid; Future Cigarette smoker - CT lung screening low dose; Future Prostate cancer screening - PSA Morbid (severe) obesity due to excess calories (CMS/HCC) Body mass index (BMI) 36.0-36.9, adult Orders Placed This Encounter Procedures CT lung screening low dose Standing Status: Future Standing Expiration Date: 05/12/2025 Order Specific Question: Reason for exam: Answer: Screening Order Specific Question: Is the patient claustrophobic? Answer: Not Claustrophic Order Specific Question: Does the patient show any signs or symptoms of lung cancer? Answer: No Order Specific Question: Is this the first (baseline) CT or an annual exam? Answer: Annual [2] Order Specific Question: Is there documentation of shared decision making? Answer: Yes CBC and differential Order Specific Question: Print requisition? Answer: No Comprehensive metabolic panel Standing Status: Future Number of Occurrences: 1 Standing Expiration Date: 05/12/2025 Order Specific Question: Print requisition? Answer: No Lipid panel Standing Status: Future Number of Occurrences: 1 Standing Expiration Date: 05/12/2025 PSA Order Specific Question: Print requisition? Answer: No Uric acid Standing Status: Future Number of Occurrences: 1 Standing Expiration Date: 05/12/2025 Order Specific Question: Print requisition? Answer: No Electronically signed by Zach Ricci MD on May 12, 2024 documented in this encounter [facility] 04-12-2024 Telephone encounter Note Form atting of this note might be different from the original. Losartan sent [facility] 04-12-2024 Telephone encounter Note Form atting of this note might be different from the original. Omeprazole sent. [facility] 04-12-2024 Miscellaneous Notes Formattin g of this note might be different from the original. Omeprazole sent. documented in this encounter [facility] 04-12-2024 Miscellaneous Notes Formattin g of this note might be different from the original. Losartan sent documented in this encounter [facility] 03-29-2021 Evaluation note Encounter Date Diagnosis Assessment Notes Mar, Contact with and (suspected) exposure to other viral communicable diseases (ICD-10 - Z20.828) Advised patient that rapid COVID antigen and Influenza A/B test was negative today. Encouraged supportive care as directed, increase fluids and rest, Tylenol/Motrin as directed, OTC cough/cold remedies as directed on packaging such as Cordicidin HBP, cool mist humidifier, throat lozenges. Discussed infection control practices such as good hand washing and mask wearing. Patient to follow up with PCP if sx persist or worsen despite treatment for COVID PCR test. Immediate eval for SOB, difficulty, chest pain, fevers that do not break with antipyretic or any other concerning symptoms as reviewed on patient education handout. Patient verbalizes understanding and is agreeable to treatment plan. Patient left in stable condition Mar, Other Additional time spent conducting pre-visit phone call, screening for symptoms, instructions on social distancing, application and removal of PPE, and cleaning of examination room, equipment and supplies was preformed. Patient education given for testing methodology and results. Patient care instructions given in writting by [facility] Care At Home document NI Other Evaluation note* Diagnosis Onset Date Resolution Status Left rib fracture acute Mid back pain on left side a [facility] Work Phone: Evaluation note* Diagnosis Gastro-esophageal reflux disease without esophagitis documented in this encounter [facility] Healthcare[facility] note* Diagnosis Primary hypertension (CMS/HCC) Unspecified essential hypertension documented in this encounter [facility] Healthcare[facility] note* Diagnosis Routine general medical examination at health care facility- Primary Routine general medical examination at a health care facility ACP (advance care planning) Other specified counseling Primary hypertension (CMS/HCC) Unspecified essential hypertension Gastroesophageal reflux disease without esophagitis Esophageal reflux Idiopathic chronic gout without tophus, unspecified site Cigarette smoker Tobacco use disorder Prostate cancer screening Special screening for malignant neoplasm of prostate Morbid (severe) obesity due to excess calories (CMS/HCC) Body mass index (BMI) 36.0-36.9, adult documented in this encounter [facility] HealthcareHistory general Narrative - Reported* Type Description Date Surgical History b/l knee replacement NI Other Summary Purpose Family History No Family History Records Found Relationship Condition Age at Onset Recorded Date/T gal father Unknown Malignant neoplasm Unknown family member Unknown Not Specified Unknown Advance Directives No Advanced Directives Records Found Advance Directive Response Recorded Date/ Time Advance Directives No August 11, 024 10:16am Chief Complaint and Reason for Visit Chief Complaint Shoulder pain after fall fall, back pain Reason for Visit Left rib fracture Mid back pain on left side Additional Source Comments REASON FOR VISIT (unrecogniz ed section and content) Reason Comments Med Refill Reason Comments Medicare Annual Wellness Visit Subsequen t (unrecognized sect ion and content) No Status Records FoundNo Status Records FoundNo Status Records FoundNo Status Records Found INFORMATION SOURCE (unrecogn ized section and content) DATE CREATED AUTHOR 04/12/2022 [facility] DATE CREATED AUTHOR AUTHOR'S ORGANIZ ATION 08/17/2023 [facility] DATE CREATED AUTHOR AUTHOR'S ORGANIZ ATION 05/13/2024 [facility] EPIC DATE CREATED AUTHOR AUTHOR'S ORGANIZ ATION 05/14/2024 [facility] Care Teams (unrecognized sec tion and content) Team Status: Active Member Role Status Dates Zach Ricci II MD Primary Care Provider Active Team Status: Inactive Member Role Status Dates Zach Ricci II MD Primary Care Provider Active Start: August 12, 2023 End: August 12, 2023 Caty Epstein APRN Attending Provider Active Start: August 12, 2023 End: August 12, 2023 Team Status: Active Member Role Status Dates Zach iRcci II MD Primary Care Provider Active Start: August 12, 2023 Caty Epstein APRN Attending Provider Active Start: August 12, 2023 Suspect Artist Supervisor Relationship Specialty Start Date End Date Zach Ricci MD [address] [facility] [address] [place] [address] PCP - General Internal Medicine 08/27/22 Suspect Artist Supervisor Relationship Specialty Start Date End Date Zach Ricci MD [address] [facility] [facility] [address] [place] [address] PCP - General Internal Medicine 08/27/22 Suspect Artist Supervisor Relationship Specialty Start Date End Date Zach Ricci MD [address] [facility] [address] [place] [address] PCP - General Internal Medicine 08/27/22 Goals (unrecognized section and content) Goals may be documented in a n alternate section FOR RECORDS PERTAINING TO PATIENTS WHO ARE OR HAVE BEEN ENROLLED IN A CHEMICAL DEPENDENCY/SUBSTANCEABUSE PROGRAM, SOME INFORMATION MAY BE OMITTED. This clinical summary was aggregated from multiple sources. Caution should be exercised in using it in the provision of clinical care. This summary normalizes information from multiple sources, and as a consequence, information in this document may materially change the coding, format and clinical context of patient data. In addition, data may be omitted in some cases. CLINICAL DECISIONS SHOULD BE BASED ON THE PRIMARY CLINICAL RECORDS. [facility] [employer] [facility]. provides no warranty or guarantee of the accuracy or completeness of information in this document.
== END 2024-06-01 09:02 | disposition home or self-care (01) ==
LOC: CT 09:03
PROVIDERS: PCP Internal Medicine; Visit Provider Internal Medicine
DX: F17.210 Nicotine dependence, cigarettes, uncomplicated (principal)
CPT/HCPCS: 71271